=== PATIENT | male | born 1985 | race Caucasian/White ===

== ENCOUNTER 2021-09-20 04:38 | Emergency (ER) | payer OTHER, BC ==
[2021-09-20] MEDS ORDERED: Boostrix 0.5 ML (Tdap) VIAL ONE (05:33)
[2021-09-20] MEDS ORDERED: Acetaminophen 500 MG TAB ONE (06:03)
[2021-09-20] MEDS ORDERED: Ibuprofen 200 MG TAB ONE (06:03)
== END 2021-09-20 06:05 | disposition home or self-care (01) ==
LOC: EEVIPCON 04:38 → CSHERS 04:38
DX: S01.81XA Laceration without foreign body of other part of head, initial encounter (principal); S01.112A Laceration without foreign body of left eyelid and periocular area, initial encounter; S06.0X0A Concussion without loss of consciousness, initial encounter; Z23 Encounter for immunization; W01.0XXA Fall on same level from slipping, tripping and stumbling without subsequent striking against object, initial encounter
CPT/HCPCS: 12013; 90471; 90715